=== PATIENT | female | born 1995 | race Hispanic/Latino ===

== ENCOUNTER 2018-03-03 01:29 | Inpatient (IN) | payer BC, OTHER ==
[2018-03-03] MEDS ORDERED: Magnesium Sulfate 20 gm/500 ml 20 GM/500 ML BAG ONE (02:02)
[2018-03-03] MEDS ORDERED: hydrALAZINE 20 MG/ML VIAL ONE (02:03)
[2018-03-03] MEDS ORDERED: Ibuprofen 800 MG TAB PO PRN (02:08)
[2018-03-03] MEDS ORDERED: Calcium Gluc 4.6 MEQ/10 ML (100 MG/ML) SLOW IVP PRN (02:08)
[2018-03-03] MEDS ORDERED: Butorphanol Tartrate 1 MG/ML VIAL SLOW IVP PRN (02:08)
[2018-03-03] MEDS ORDERED: NS / Oxytocin 40 units/1000ml 1,000 ML IV PRN (02:08)
[2018-03-03] MEDS ORDERED: Lidocaine 1% (PF) 30 ML VIAL SC PRN (02:08)
[2018-03-03] MEDS ORDERED: Acetaminophen/Codeine 30-300mg Tablet PO PRN ×2 (02:08)
[2018-03-03] MEDS ORDERED: Penicillin G Potassium 5 MILL.UNITS in Sodium Chloride 0.9% 100 ML IVPB SCH (02:15)
[2018-03-03] MEDS: Lactated Ringer's 1,000 ML IV SCH ×3 (02:15→23:30)
[2018-03-03 02:49] VITALS: BMI 40.9
[2018-03-03] MEDS: Misoprostol 100 MCG TAB PO SCH ×5 (02:58→20:53)
[2018-03-03] MEDS: Betamet Acet/Betamet Na Ph 30 MG/5 ML VIAL IM SCH (03:03)
[2018-03-03] MEDS: Ondansetron PF 4 MG/2 ML Vial IVP PRN ×2 (03:10→18:09)
[2018-03-03 03:33] LABS: Hemoglobin 13.1 g/dL (12.0-16.0); Mean Corpuscular HGB CONC 35.4 g/dL (32.0-36.0); Mean Corpuscular Hemoglobin 31.6 pg (27.0-31.0); Mean Corpuscular Volume 89.3 fL (78.0-98.0); Mean Platelet Volume 8.5 fL (7.4-10.4); Platelet Count 231 thou/uL (130-400); Red Blood Cell (RBC) Count 4.15 mill/uL (4.20-5.40); White Blood Cell (WBC) Count 12.7 thou/uL (4.8-10.8)
[2018-03-03 04:08] LABS: Amphetamine Not Detected (NotDetected); Barbiturates Screen Not Detected (NotDetected); Benzodiazepine Screen Not Detected (NotDetected); Cocaine Metabolite Screen Not Detected (NotDetected); Medtox Control Line Valid? VALID (VALID); Medtox Reader # READER 1; Methadone Not Detected (NotDetected); Methamphetamine Not Detected (NotDetected); Opiate Screen Not Detected (NotDetected); Oxycodone Screen Not Detected (NotDetected); Phencyclidine (PCP) Not Detected (NotDetected); THC/Cannabinoid Screen Not Detected (NotDetected); Tricyclic Screen Not Detected (NotDetected)
[2018-03-03 04:13] LABS: HBSAg Index 0.24 S/CO (0-0.99); Hep B Surf Ag Non-Reactive S/CO (NonReactive)
[2018-03-03] MEDS: hydrALAZINE 20 MG/ML VIAL SLOW IVP SCH ×2 (04:37→22:11)
[2018-03-03 04:47] LABS: Syphilis Antibody Nonreactive (Nonreactive); Syphilis Antibody Index 0.03 S/CO (<1.00 Non-Reactive)
[2018-03-03] MEDS ORDERED: Acetaminophen 500 MG TAB PO PRN (08:29)
[2018-03-03] MEDS: hydrALAZINE 20 MG/ML VIAL ONE ×2 (11:27→11:54)
[2018-03-03] MEDS: Magnesium Sulfate 20 gm/500 ml 20 GM/500 ML BAG IVPB SCH (11:50)
[2018-03-03] MEDS ORDERED: Fentanyl 4 mcg/Bup 0.1% Cadd 100 ML ONE ×2 (12:22→19:55)
[2018-03-03] MEDS ORDERED: NS w/ Oxytocin 10 units 500 ML ONE (13:22)
[2018-03-03] MEDS ORDERED: Penicillin G Potassium 5 MILL.UNITS VIAL ONE (13:22)
[2018-03-03] MEDS ORDERED: NS w/ Oxytocin 10 units 500 ML IV SCH (13:30)
[2018-03-03] MEDS ORDERED: ePHEDrine/0.9% NaCl/PF SYRINGE 50 mg/10 ml ONE (15:00)
[2018-03-03] MEDS ORDERED: Bupivacaine HCl 0.5%/Epinephrine 1:200,000/PF 30 ml Vial ONE (15:00)
[2018-03-03] MEDS ORDERED: Terbutaline Sulfate 1 MG/ML VIAL ONE (15:00)
[2018-03-03] MEDS: Penicillin G 2.5 MILL.units 2.5 MILL.UNITS in Premix Bag 1 BAG IVPB SCH ×3 (17:27→21:52)
[2018-03-03] MEDS ORDERED: Eucerin (Mineral Oil/Petrolatum,White) 30 gm Jar TOP PRN (20:06)
[2018-03-03] MEDS ORDERED: Lactated Ringer's 500 ML IV PRN (20:06)
[2018-03-03] MEDS ORDERED: diphenhydrAMINE 50 MG/ML VIAL IVP PRN (20:06)
[2018-03-03] MEDS ORDERED: Acetaminophen 325 MG TAB PO PRN (20:06)
[2018-03-03] MEDS ORDERED: Promethazine HCl 25 MG/ML VIAL IM PRN (20:06)
[2018-03-03] MEDS ORDERED: Naloxone HCl 0.4 mg/ml Vial IVP PRN ×2 (20:06)
[2018-03-03] MEDS ORDERED: Ondansetron PF 4 MG/2 ML Vial IVP PRN (20:06)
[2018-03-03] MEDS ORDERED: Fentanyl 4 mcg/Bupivacaine 0.1% Cassette 100 ML EPIDURAL SCH (20:15)
[2018-03-03] MEDS ORDERED: Communication Order-Pharmacy FS SCH (20:15)
[2018-03-03] MEDS ORDERED: Labetalol HCl 100 MG/20 ML VIAL SLOW IVP PRN (22:22)
[2018-03-03] MEDS ORDERED: Terbutaline Sulfate 1 MG/ML VIAL SC SCH (23:00)
[2018-03-03] MEDS: ePHEDrine/0.9% NaCl/PF SYRINGE 50 mg/10 ml SLOW IVP PRN ×2 (23:17→23:33)
--- NOTE | 2018-03-03 23:45 | PDOC.LDPN ---
Labor & Delivery Progress Note - Subjective Subjective: comfortable - Objective Vital signs reviewed and normal: yes General: NAD, resting Uterine fundus: non tender Dilation: 7 Effacement: 100% Station: -1 FHT: category 2, variable decelerations, late decelerations Exmore contractions every: 3 mins AROM: clear fluid IUPC placed: yes FSE placed: yes Resuscitative measures: amniofusion, maternal oxygen, maternal IV fluids, maternal position change, other (ephedrine) Plan: continue plan of care, resuscitative measures -: Patient with recurrent late decelerations following epidrual bolus. FHR improved with change in position, fluids, oxygen, and ephedrine administration ( relative hypotension). Continue to monitor and anticipate .
[2018-03-04] MEDS: ePHEDrine/0.9% NaCl/PF SYRINGE 50 mg/10 ml SLOW IVP PRN (00:01)
[2018-03-04] MEDS: Penicillin G 2.5 MILL.units 2.5 MILL.UNITS in Premix Bag 1 BAG IVPB SCH ×2 (00:49→06:17)
[2018-03-04] MEDS: Betamet Acet/Betamet Na Ph 30 MG/5 ML VIAL IM SCH (00:50)
[2018-03-04] MEDS ORDERED: Fentanyl 4 mcg/Bup 0.1% Cadd 100 ML ONE (03:55)
[2018-03-04] MEDS: NS / Oxytocin 40 units/1000ml 1,000 ML IV SCH ×2 (04:15→07:04)
[2018-03-04] MEDS ORDERED: Carboprost 250 MCG/ML AMP ONE (04:22)
[2018-03-04 04:58] LABS: Actual Bicarbonate (HCO3a) 21.2 mEq/L (22-28); Base Excess (BEa) -9.5 mEq/L (-2.0 to +3.0)
[2018-03-04] MEDS: Misoprostol 200 MCG TAB ONE (05:06)
[2018-03-04] MEDS: Lactated Ringer's 1,000 ML IV SCH (05:07)
[2018-03-04] MEDS: Misoprostol 100 MCG TAB PO SCH ×3 (05:07→06:12)
[2018-03-04] MEDS ORDERED: Benzocaine/Menthol 20-0.5% 60 ML CAN TOP PRN (05:12)
[2018-03-04] MEDS ORDERED: Misoprostol 200 MCG TAB VAG ONE (05:12)
[2018-03-04] MEDS ORDERED: Milk Of Magnesia 30 ML UDCUP PO PRN (05:12)
[2018-03-04] MEDS ORDERED: Adacel (T-DAP) 0.5 ML SYRINGE IM ONE (05:12)
[2018-03-04] MEDS ORDERED: Bisacodyl 10 MG SUPP PR PRN (05:12)
[2018-03-04] MEDS ORDERED: Lanolin Ointment 7 GM TUBE TOP PRN (05:12)
[2018-03-04] MEDS ORDERED: Acetaminophen/Codeine 30-300mg Tablet PO PRN ×2 (05:18)
--- NOTE | 2018-03-04 05:22 | PDOC.OPDEL ---
OB Operative/Delivery Note Delivery Dr/Surgeon: Sharan Epstein Pre-Delivery Diagnosis: medically indicated induction (Severe PIH) Procedure/Post Delivery Dx: operative vaginal delivery (Vacuum assisted) Weeks gestation: 36 Anesthesia: epidural - Findings A Sex: female - 1 min: 7 - 5 min: 8 - Additional Findings/Plan Placenta delivered: spontaneous Repaired Obstetrical Laceration: 3rd degree (Partial) Compilations/Other Findings: Delivering Physician: Lucian Attending: Sharan Procedure: Vacuum assisted vaginal delivery Anesthesia: Epidural, Local for Repair EBL: 800 mL Pre-op Diagnosis: 1. Medically indicated IOL for PIH with severe range pressures 2. intrauterine 3. Recurrent late decelerations post epidural bolus with recovery Post-op Diagnosis: 1. intrauterine , delivered 2. Same as above 3. Partial 3rd degree perineal laceration s/p repair 4. Vacuum assisted vaginal delivery d/t maternal exhaustion Indications: A 22 y/o female presented to L&D due to elevated BP and headaches. Patient was given betamethasone and induced for PIH with severe range pressures. Delivery Note: This is 22 yo F @ 36 wks who delivered a viable F at 4:15 AM on 03/04/2018. Patient was induced for PIH with severe range pressures. Antepartum course consisted of recurrent late decelerations after epidural bolus with recovery of FHT's. Vacuum assisted vaginal delivery was performed due to prolonged second statge of labor and maternal exhaustion. A female infant was delivered over an intact perineum in the occipitoanterior position. Anterior shoulder and then remainder of the body delivered. Shoulder cord x1, reduced. The head was held down and mouth and nares were bulb suctioned. Cord clamped and cut and cord blood collected. Placenta delivered intact with a 3 vessel cord noted. Fundal massage was performed and the fundus was initially noted to be boggy. Bimanual massage was performed and patient was given hemabate and cytotec. The cervix and vagina were inspected and a partial third degree perineal laceration was noted and repaired using 2-0 Vicryl on SH. Good approximation and hemostatis was noted. 1% lidocaine with epinephrine was used for local anesthesia. required short course of CPAP and was noted to be tachypneic. She went to NICU for closer monitoring. Apgars were 7/8 at 1 & 5 minutes, respectively. Patient tolerated delivery well. She remains in LICU to continue magnesium for PIH with severe range pressures. Kimmy Epstein DO PGY-2 Post delivery plan: recovery in LICU (on Mg for severe PIH) Addendum - Attending - Attending Attestation Date/Time: 03/04/18 0753 I was present and scrubbed for the entire delivery and repair. See note for details. Pito
--- NOTE | 2018-03-04 05:22 | PDOC.OPDEL ---
OB Operative/Delivery Note Delivery Dr/Surgeon: Leigh Tsang MD Assist: Kimmy Epstein Pre-Delivery Diagnosis: medically indicated induction Procedure/Post Delivery Dx: operative vaginal delivery Weeks gestation: 36 Anesthesia: epidural - Findings A Sex: female (Soniya Diamond) Weight: 5 lb 4 oz - 1 min: 7 - 5 min: 8 - Additional Findings/Plan Placenta delivered: spontaneous Repaired Obstetrical Laceration: 3rd degree (partial) Compilations/Other Findings: Vacuum applied for maternal exhaustion after 2 hours of pushing. station 3+, HARJINDER, vacuum applied with successful extraction during 1 contraction with no popoffs. Partial 3rd degree repaired. Mom doing well. Baby to NICU for respiratory distress. Post delivery plan: recovery in LICU
[2018-03-04] MEDS ORDERED: Loperamide HCl 2 MG CAP PO SCH (06:51)
[2018-03-04] MEDS: Ibuprofen 800 MG TAB PO SCH ×2 (07:04→15:32)
[2018-03-04] MEDS: Magnesium Sulfate 20 gm/500 ml 20 GM/500 ML BAG IVPB SCH (23:07)
[2018-03-05 06:06] LABS: Hemoglobin 8.6 g/dL (12.0-16.0); Mean Corpuscular HGB CONC 34.4 g/dL (32.0-36.0); Mean Corpuscular Hemoglobin 31.8 pg (27.0-31.0); Mean Corpuscular Volume 92.5 fL (78.0-98.0); Mean Platelet Volume 8.1 fL (7.4-10.4); Platelet Count 187 thou/uL (130-400); RBC Distribution Width 12.7 % (11.5-14.5); Red Blood Cell (RBC) Count 2.69 mill/uL (4.20-5.40); White Blood Cell (WBC) Count 14.6 thou/uL (4.8-10.8)
[2018-03-05] MEDS: Docusate Calcium (SURFAK) 240 MG CAP PO SCH ×4 (06:06→23:41)
--- NOTE | 2018-03-05 08:39 | PRG ---
DATE OF SERVICE: 03/05/2018 SUBJECTIVE: The patient is day #1, status post a spontaneous vaginal delivery complicated by a partial third degree laceration and severe gestational hypertension. The patient has been on magnesium for the last 24 hours blood pressures have remained in the normal range since 5 o'clock yesterday afternoon. The patient reports she is tolerating p.o., voiding on her own, having decreased lochia, and good pain control. OBJECTIVE: VITAL SIGNS: Most recent vital signs; blood pressure 155/70, , temperature 98.7. GENERAL: She appears to be in no acute distress. She is alert and oriented, cooperative, and pleasant to interact with. HEENT: Head is normocephalic, atraumatic. ABDOMEN: Fundus is firm. EXTREMITIES: Nontender, nonedematous. LABORATORY DATA: Her hemoglobin is 8.6, hematocrit is 24.9, and platelets 187,000. The patient will be kept here in labor and delivery until about noon today to confirm blood pressure remains in range not requiring treatment, and then patient will be transferred to the floor for care. Job ID: [id number]
[2018-03-05] MEDS: Prenatal Vitamin 1 TAB PO SCH ×2 (09:17→20:45)
[2018-03-05] MEDS: Ferrous Sulfate 325 MG TAB PO SCH ×4 (09:17→23:43)
[2018-03-05] MEDS ORDERED: Milk Of Magnesia 30 ML UDCUP PO PRN (12:07)
[2018-03-05] MEDS ORDERED: Bisacodyl 10 MG SUPP PR PRN (12:07)
[2018-03-05] MEDS ORDERED: Adacel (T-DAP) 0.5 ML SYRINGE IM ONE (12:07)
--- NOTE | 2018-03-05 12:11 | PDOC.EVN ---
Event Note - Event Note Event Note: Mg stopped earlier this AM. VSS AF. Bps are excellent, 120/80's. Lochia is small. Plan: Transfer to floor when bed available.
[2018-03-05] MEDS ORDERED: NS / Oxytocin 40 units/1000ml 1,000 ML IV SCH (12:15)
[2018-03-05] MEDS: Polyethylene Glycol 3350 17 GM Packet PO SCH ×2 (14:24→23:42)
[2018-03-05] MEDS: Misoprostol 100 MCG TAB PO SCH ×3 (14:25→23:42)
[2018-03-05] MEDS: Ibuprofen 800 MG TAB PO SCH ×2 (20:45→20:50)
[2018-03-06] MEDS: Ibuprofen 800 MG TAB PO SCH ×2 (05:02→14:56)
--- NOTE | 2018-03-06 06:11 | PDOC.PP ---
Post Progress Note Post Day #: PPD#2 Subjective: Feels well, no complaints. PO intake tolerated: yes Flatus: yes Ambulation: yes Vital Signs (12 hours) Temp Pulse Resp BP Pulse Ox 03/06/18 04:55 98.6 F 93 16 130/79 03/06/18 00:02 98.4 F 103 H 18 146/82 H 03/05/18 19:45 98.4 F 102 H 16 121/72 97 Weight Weight 104.78 kg - Physical Examination General: NAD Respiratory: non-labored breathing Abdominal: no distention Neurological: no gross focal deficits Psychiatric: normal affect Result Diagrams: 03/05/18 05:55 Additional Labs: Post Labs Blood Type O POSITIVE 03/03/18 03:25 Hep Bs Antigen Non-Reactive S/CO (NonReactive) 03/03/18 03:25 - Assessment/Plan Resolving PIH DC home. Precautions. RTC [address] Nance.
[2018-03-06 08:06] VITALS: BP 148/73; TEMP 99
[2018-03-06] MEDS: Ferrous Sulfate 325 MG TAB PO SCH (08:29)
[2018-03-06] MEDS: Prenatal Vitamin 1 TAB PO SCH (08:29)
[2018-03-06] MEDS: Docusate Calcium (SURFAK) 240 MG CAP PO SCH (08:29)
== END 2018-03-06 18:27 | disposition home or self-care (01) | DRG 768 ==
LOC: L&D/OP 01:29 → L&D 02:59 → 3SE 03-05 18:38
PROVIDERS: ADMIT Obstetrics & Gynecology; ATTEND Obstetrics & Gynecology
PROC: 10D07Z6 Extraction of Products of Conception, Vacuum, Via Natural or Artificial Opening (ICD-10-PCS; principal; 2018-03-04)
PROC: 0DQR0ZZ Repair Anal Sphincter, Open Approach (ICD-10-PCS; 2018-03-04)
DX: O13.4 Gestational [pregnancy-induced] hypertension without significant proteinuria, complicating childbirth (principal); Z37.0 Single live birth; O60.14X0 Preterm labor third trimester with preterm delivery third trimester, not applicable or unspecified; Z3A.36 36 weeks gestation of pregnancy; O76 Abnormality in fetal heart rate and rhythm complicating labor and delivery; O70.20 Third degree perineal laceration during delivery, unspecified; O75.81 Maternal exhaustion complicating labor and delivery; O69.81X0 Labor and delivery complicated by cord around neck, without compression, not applicable or unspecified
CPT/HCPCS: 36415; 80306; 81003; 82805; 85027; 86780; 86850; 86900; 86901; 87340; J0360; J0595; J0670; J0702; J2001; J2405; J2540; J3105; J3475; J3490